=== PATIENT | male | born 1980 | race Caucasian/White ===

== ENCOUNTER 2017-01-28 01:55 | Emergency (ER) | payer OTHER ==
[~2017-01-28 01:55] MED LIST: FLEXERIL DPS5 MG PO; HYDROCODONE 5MG/5 MG PO; KEPPRA1000 MG PO; MULTI VITAMIN1 EACH PO; MULTIPLE VITAM1 EACH PO; NORVASC5 MG PO; PEPCID DPS20 MG PO; TYLENOL DPS325 MG PO
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
== END 2017-01-28 02:35 | disposition home or self-care (01) ==
LOC: ER 01:55
DX: Z77.098 Contact with and (suspected) exposure to other hazardous, chiefly nonmedicinal, chemicals (principal); I10 Essential (primary) hypertension

== ENCOUNTER → 2017-04-25 | Outpatient (CLI) | payer OTHER | END | disposition home or self-care (01) | LOC: RAD.S 04-18 10:45 | DX: Z48.811 Encounter for surgical aftercare following surgery on the nervous system (principal); Z98.890 Other specified postprocedural states ==